=== PATIENT | female | born 1995 ===

== ENCOUNTER 2017-07-01 20:17 | Emergency (ER) | payer MEDICAID, OTHER ==
[2017-07-01 20:17] VITALS: BMI 21.5
[2017-07-01 21:43] VITALS: BP 113/78; O2SAT 100
[2017-07-01 21:56] LABS: RBC URINE 14 /hpf (0-3); URINE BACTERIA RARE (<OCC); URINE BILIRUBIN NEGATIVE (NEGATIVE); URINE BLOOD NEGATIVE (NEGATIVE); URINE COLOR Yellow (YELLOW); URINE GLUCOSE (UA) NORMAL (Normal); URINE KETONE NEGATIVE (NEGATIVE); URINE LEUKOCYTE ESTERASE 2+ Leu/uL (Negative); URINE PROTEIN NEGATIVE (NEGATIVE); URINE UROBILINOGEN NORMAL mg/dL (0.2-1.0); WBC URINE 56 /hpf (0-5)
--- NOTE | 2017-07-01 22:51 | C.PDOC ---
History Of Present Illness 21 year old female presents to the ED with complaints of urinary frequency and dysuria for three days. Patient denies back pain, fever, nausea, vomiting, or vaginal discharge. Time Seen by Provider: 07/01/17 22:39 Chief Complaint (Nursing): Female Genitourinary History Per: Patient History/Exam Limitations: no limitations Onset/Duration Of Symptoms: Days (3 days ) Current Symptoms Are (Timing): Still Present Associated Symptoms: Urinary Symptoms (frequency and dysuria ). denies: Fever, Chills, Nausea, Vomiting, Diarrhea Alleviating Factors: None Recent travel outside of the [place]: No Additional History Per: Family Abnormal Vaginal Bleeding: No Past Medical History Reviewed: Historical Data, Nursing Documentation, Vital Signs Vital Signs: Last Vital Signs Temp 98.6 F 07/01/17 22:40 Pulse 82 07/01/17 22:40 Resp 18 07/01/17 22:40 BP 113/78 07/01/17 21:38 Pulse Ox 100 07/01/17 23:51 Family History: States: Unknown Family Hx - Social History Hx Tobacco Use: No Hx Alcohol Use: Yes Hx Substance Use: No - Immunization History Hx Tetanus Toxoid Vaccination: No Hx Influenza Vaccination: No Hx Pneumococcal Vaccination: No Review Of Systems Constitutional: Negative for: Fever, Chills Respiratory: Negative for: Cough Gastrointestinal: Negative for: Nausea, Vomiting, Abdominal Pain, Diarrhea Genitourinary: Positive for: Dysuria, Frequency. Negative for: Hematuria, Vaginal Discharge, Vaginal Bleeding Musculoskeletal: Negative for: Back Pain Physical Exam - Physical Exam Appears: Non-toxic, No Acute Distress Skin: Warm, Dry Head: Atraumatic Eye(s): bilateral: Normal Inspection, EOMI Oral Mucosa: Moist Chest: Symmetrical, No Deformity Cardiovascular: Rhythm Regular, No Murmur Respiratory: Normal Breath Sounds, No Rales, No Rhonchi, No Wheezing Gastrointestinal/Abdominal: Soft, No Tenderness, No Distention, No Guarding, No Rebound Back: No CVA Tenderness Extremity: Normal ROM, No Tenderness Neurological/Psych: Oriented x3 Gait: Steady ED Course And Treatment O2 Sat by Pulse Oximetry: 100 (room air ) Progress Note: Labs were ordered and patient was given Pyrudium and Macrobid. Upon re-evaluation patient is resting comfortably. Disposition - Disposition Disposition: HOME/ ROUTINE Disposition Time: 22:48 Condition: STABLE Additional Instructions: Follow up with primary medical doctor in 1-3 days without fail for further evaluation. Take medications as prescribed. Return to the emergency department at any time if symptoms persist or worsen. Prescriptions: Nitrofurantoin Macrocrystals [Macrobid] 100 mg PO BID #14 cap Phenazopyridine HCl [Pyridium] 100 mg PO TID #6 tablet Instructions: Urinary Tract Infection in Women (ED) Forms: [employer] (Portuguese) - Clinical Impression Clinical Impression: UTI (urinary tract infection) - PA / SALES TRAINING REPRESENTATIVE / Resident Statement MD/DO has reviewed & agrees with the documentation as recorded. - Scribe Statement The provider has reviewed the documentation as recorded by the Scribe Linda Oconnor All medical record entries made by the Jef were at my direction and personally dictated by me. I have reviewed the chart and agree that the record accurately reflects my personal performance of the history, physical exam, medical decision making, and the department course for this patient. I have also personally directed, reviewed, and agree with the discharge instructions and disposition.
[2017-07-01 23:10] VITALS: PULSE 82; RESP 18; TEMP 98.6
== END 2017-07-01 22:45 | disposition home or self-care (01) ==
LOC: C.ER 20:17
DX: N39.0 Urinary tract infection, site not specified (principal)

== ENCOUNTER 2017-08-01 11:22 | Emergency (ER) | payer MEDICAID ==
[2017-08-01 11:23] VITALS: BMI 21.5
[2017-08-01 12:17] LABS: RBC URINE 4663 /hpf (0-3); URINE BACTERIA RARE (<OCC); URINE BILIRUBIN NEGATIVE (NEGATIVE); URINE BLOOD 3+ (NEGATIVE); URINE COLOR Amber (YELLOW); URINE GLUCOSE (UA) NORMAL (Normal); URINE KETONE TRACE mg/dL (NEGATIVE); URINE LEUKOCYTE ESTERASE 3+ Leu/uL (Negative); URINE PROTEIN 2+ mg/dL (NEGATIVE); WBC CLUMPS OCC /hpf; WBC URINE 386 /hpf (0-5)
--- NOTE | 2017-08-01 12:36 | C.PDOC ---
History Of Present Illness Kirti Brooks is a 21 y/o Time Seen by Provider: 08/01/17 11:50 Chief Complaint (Nursing): Abdominal Pain Past Medical History Vital Signs: Last Vital Signs Temp 98.2 F 08/01/17 11:36 Pulse 108 H 08/01/17 11:36 Resp 18 08/01/17 11:36 BP 132/89 08/01/17 11:36 Pulse Ox 97 08/01/17 11:36 - Medical History PMH: Denies: HIV, HTN, Seizures, Sexually Transmitted Disease Family History: States: Unknown Family Hx - Social History Hx Tobacco Use: No Hx Alcohol Use: No Hx Substance Use: No - Immunization History Hx Tetanus Toxoid Vaccination: No Hx Influenza Vaccination: No Hx Pneumococcal Vaccination: No ED Course And Treatment O2 Sat by Pulse Oximetry: 97 Disposition - Disposition
--- NOTE | 2017-08-01 12:40 | C.PDOC ---
History Of Present Illness Kirti Brooks is a 21 y/o female complaining of lower abdominal pressure, urinary discomfort, frequency and urgency for the last few weeks. Seen for the same symptoms at end of June and treated with macrobid and pyridium with some relief, but symptoms returned. Denies fever, chills, back pain, vomiting, vaginal discharge and bleeding. Also complains of left knee pain s/p twisting injury more than 1 month ago, with some swelling. PMD: None provided Time Seen by Provider: 08/01/17 11:50 Chief Complaint (Nursing): Abdominal Pain History Per: Patient History/Exam Limitations: no limitations Onset/Duration Of Symptoms: Days (x 3 weeks) Current Symptoms Are (Timing): Still Present Associated Symptoms: Urinary Symptoms Past Medical History Reviewed: Historical Data, Nursing Documentation, Vital Signs Vital Signs: Last Vital Signs Temp 97.7 F 08/01/17 13:06 Pulse 97 H 08/01/17 13:06 Resp 20 08/01/17 13:06 BP 108/72 08/01/17 13:06 Pulse Ox 98 08/01/17 13:06 - Medical History PMH: No Chronic Diseases Denies: HIV, HTN, Seizures, Sexually Transmitted Disease Surgical History: No Surg Hx Family History: States: Unknown Family Hx - Social History Hx Tobacco Use: No Hx Alcohol Use: No Hx Substance Use: No - Immunization History Hx Tetanus Toxoid Vaccination: No Hx Influenza Vaccination: No Hx Pneumococcal Vaccination: No Review Of Systems Constitutional: Negative for: Fever, Chills Gastrointestinal: Positive for: Abdominal Pain (lower abdominal pressure). Negative for: Nausea, Vomiting Genitourinary: Positive for: Dysuria, Frequency (and urgency). Negative for: Vaginal Discharge, Vaginal Bleeding Musculoskeletal: Negative for: Back Pain Physical Exam - Physical Exam Appears: Non-toxic, No Acute Distress Skin: Normal Color, Warm, Dry Head: Atraumatic, Normacephalic Eye(s): bilateral: Normal Inspection, PERRL, EOMI Throat: Normal Neck: Normal, Supple Chest: Symmetrical Cardiovascular: Rhythm Regular, No Murmur Respiratory: Normal Breath Sounds, No Accessory Muscle Use Gastrointestinal/Abdominal: Normal Exam, Bowel Sounds (good), Soft, No Tenderness Back: Normal Inspection, No CVA Tenderness Extremity: No Normal ROM, No Deformity, Swelling (left knee mildly swollen. Not red or hot), Other (Slightly decreased flexion of left knee secondary to pain) Pulses: Left Dorsalis Pedis: Normal, Right Dorsalis Pedis: Normal Neurological/Psych: Oriented x3, Normal Speech ED Course And Treatment O2 Sat by Pulse Oximetry: 97 (RA) Pulse Ox Interpretation: Normal Progress Note: Patient given Motrin. Ordered urine culture, urinalysis, urine test. Urine culture results from prior visit reviewed, cipro sensitive. Will D/C with cipro and pyridium. Follow up with preschool assistant or primary doctor. Disposition Counseled Patient/Family Regarding: Studies Performed, Diagnosis, Need For Followup, Rx Given - Disposition Referrals: Keon Adamson III, MD [Staff Provider] - Disposition: HOME/ ROUTINE Disposition Time: 12:37 Condition: STABLE Additional Instructions: Please take antibiotics as prescribed, ibuprofen for pain, pyridium for urinary discomfort- this medicine turns your tears and urine orange. Do not wear contact lenses when taking this medication. Wear Vinh bandage on knee for comfort and apply cold compresses to knee for 10 min at a time, several times a day. Follow up with your preschool assistant or primary medical doctor and with orthopedics. Return to ER for any worsening pain, vomiting, fever or other concerns. Prescriptions: Ciprofloxacin [Cipro] 500 mg PO BID #14 tab Ibuprofen [Motrin] 600 mg PO TID #30 tab Phenazopyridine [Pyridium] 200 mg PO TID #6 tab Instructions: Knee Sprain (ED), Urinary Tract Infection in Women (ED) Forms: General Discharge Instructions, [facility] (Fijian) - Clinical Impression Clinical Impression: UTI (urinary tract infection), Sprain of left knee
[2017-08-01 13:06] VITALS: BP 108/72; PULSE 97; RESP 20; TEMP 97.7
[2017-08-05 23:51] VITALS: O2SAT 97
== END 2017-08-01 13:07 | disposition home or self-care (01) ==
LOC: C.ER 11:22
DX: N39.0 Urinary tract infection, site not specified (principal); S83.92XA Sprain of unspecified site of left knee, initial encounter; X58.XXXA Exposure to other specified factors, initial encounter

== ENCOUNTER 2017-08-02 01:45 | Emergency (ER) | payer MEDICAID ==
[2017-08-02 01:46] VITALS: BMI 21.5
[2017-08-02 01:53] VITALS: RESP 16
[2017-08-02 03:40] LABS: RBC URINE 9 /hpf (0-3); URINE BILIRUBIN NEGATIVE (NEGATIVE); URINE BLOOD NEGATIVE (NEGATIVE); URINE GLUCOSE (UA) NORMAL (Normal); URINE KETONE NEGATIVE (NEGATIVE); URINE LEUKOCYTE ESTERASE 1+ Leu/uL (Negative); URINE PROTEIN 1+ mg/dL (NEGATIVE); WBC URINE 39 /hpf (0-5)
[2017-08-02 03:44] LABS: URINE COLOR ORANGE (YELLOW)
[2017-08-02 04:10] VITALS: BP 104/69; PULSE 74; TEMP 97.8; O2SAT 99
--- NOTE | 2017-08-02 04:21 | C.PDOC ---
History Of Present Illness 21 year old female who was seen earlier today for a UTI returns with abdominal pain and vomiting after taking 2 doses of the cipro she was prescribed. Patient report she did not eat anything before taking the cipro. Denies fever or chills. Time Seen by Provider: 08/02/17 02:14 Chief Complaint (Nursing): Abdominal Pain History Per: Patient History/Exam Limitations: no limitations Onset/Duration Of Symptoms: Hrs Current Symptoms Are (Timing): Still Present Location Of Pain/Discomfort: Diffuse Radiation Of Pain To:: None Quality Of Discomfort: Unable To Describe Associated Symptoms: Vomiting. denies: Fever, Chills Exacerbating Factors: None Alleviating Factors: None Recent travel outside of the [place]: No Abnormal Vaginal Bleeding: No Past Medical History Reviewed: Historical Data, Nursing Documentation, Vital Signs Vital Signs: Last Vital Signs Temp 97.8 F 08/02/17 04:09 Pulse 74 08/02/17 04:09 Resp 16 08/02/17 04:09 BP 104/69 08/02/17 04:09 Pulse Ox 99 08/02/17 04:28 - Medical History PMH: No Chronic Diseases Surgical History: No Surg Hx Family History: States: Unknown Family Hx - Social History Hx Tobacco Use: No Hx Alcohol Use: No Hx Substance Use: No - Immunization History Hx Tetanus Toxoid Vaccination: No Hx Influenza Vaccination: No Hx Pneumococcal Vaccination: No Review Of Systems Constitutional: Negative for: Fever, Chills Gastrointestinal: Positive for: Nausea, Vomiting, Abdominal Pain Physical Exam - Physical Exam Appears: Non-toxic, No Acute Distress Skin: Normal Color, Warm, Dry Head: Atraumatic, Normacephalic Eye(s): bilateral: Normal Inspection Oral Mucosa: Moist Neck: Normal ROM Chest: Symmetrical Cardiovascular: Rhythm Regular, No Friction Rub, No Murmur Respiratory: Normal Breath Sounds, No Rales, No Rhonchi, No Wheezing Gastrointestinal/Abdominal: Soft, No Tenderness, No Guarding, No Rebound, No Hernia Extremity: Normal ROM, No Swelling Neurological/Psych: Oriented x3, Normal Speech, Normal Cognition, Normal Motor Gait: Steady ED Course And Treatment O2 Sat by Pulse Oximetry: 99 (Room air) Pulse Ox Interpretation: Normal Medical Decision Making Medical Decision Making: Urinalysis ordered. Zofran administered. On reevaluation, patient reports improvement of pain and symptoms, will discharge home with instructions to continue antibiotics as prescribed and to follow up with PMD in 1-2 days. Disposition - Disposition Referrals: [facility] [Outside] Disposition: HOME/ ROUTINE Disposition Time: 04:24 Condition: GOOD Additional Instructions: Follow up with the medical doctor within 1-2 days without fail. Return if worsened. Prescriptions: Ondansetron ODT [Zofran ODT] 1 odt PO BID PRN #10 odt PRN Reason: Nausea/Vomiting Instructions: Ondansetron (By mouth), Urinary Tract Infection in Women (ED) Forms: [employer] (Uruguayan) - Clinical Impression Clinical Impression: UTI (urinary tract infection), Medication side effect, Nausea & vomiting - Scribe Statement The provider has reviewed the documentation as recorded by the Scribjairo Lantigua All medical record entries made by the Kaylynibjairo were at my direction and personally dictated by me. I have reviewed the chart and agree that the record accurately reflects my personal performance of the history, physical exam, medical decision making, and the department course for this patient. I have also personally directed, reviewed, and agree with the discharge instructions and disposition.
== END 2017-08-02 04:44 | disposition home or self-care (01) ==
LOC: C.ER 01:45
DX: N39.0 Urinary tract infection, site not specified (principal); R11.2 Nausea with vomiting, unspecified; R10.9 Unspecified abdominal pain; T36.8X5A Adverse effect of other systemic antibiotics, initial encounter

== ENCOUNTER 2018-01-12 12:32 | Emergency (ER) | payer MEDICAID ==
[2018-01-12 12:32] VITALS: BMI 21.5
[2018-01-12 13:15] VITALS: O2SAT 100
[2018-01-12 14:02] VITALS: BP 112/69; PULSE 101; RESP 18; TEMP 99.3
--- NOTE | 2018-01-12 15:00 | C.PDOC ---
History Of Present Illness <Kristina Lloyd - Last Filed: 01/12/18 16:39> <Diana Vicente DO - Last Filed: 01/13/18 09:44> Patient is a 22 year old female who denies past medical history who presents to the ED with complaint of two days of nausea, sore throat, headache and fever. Patient states she took ibuprofen yesterday with no relief of symptoms. Patient reports pain in bilateral temples. She reports decreased appetite today. Patient denies sick contacts. Patient denies dysuria, vomiting, diarrhea, body aches. LMP 1.5 weeks ago, normal, per patient. Patient reports improvement in symptoms after receiving Tylenol. (Diana Vicente DO) <Kristina Lloyd - Last Filed: 01/12/18 16:39> History Per: Patient Onset/Duration Of Symptoms: Days Current Symptoms Are (Timing): Better Location Of Pain: Throat Sick Contacts (Context): None Associated Symptoms: Fever, Sore Throat. denies: Neck Pain, Sinus Drainage, Myalgias Ear Symptoms: Bilateral: None, Ear Pain, Ear Fullness, Decreased Hearing, External Ear Redness, Ear Swelling, Ear Drainage <Diana Vicente DO - Last Filed: 01/13/18 09:44> Time Seen by Provider: 01/12/18 14:01 Chief Complaint (Nursing): ENT Problem Past Medical History - Medical History PMH: No Chronic Diseases Denies: HIV, HTN, Seizures, Sexually Transmitted Disease Family History: States: Unknown Family Hx - Social History Hx Tobacco Use: No Hx Alcohol Use: No Hx Substance Use: No - Immunization History Hx Tetanus Toxoid Vaccination: No Hx Influenza Vaccination: No Hx Pneumococcal Vaccination: No <Diana Vicente DO - Last Filed: 01/13/18 09:44> Vital Signs: Last Vital Signs Temp 99.3 F 01/12/18 14:01 Pulse 101 H 01/12/18 14:01 Resp 18 01/12/18 14:01 BP 112/69 01/12/18 14:01 Pulse Ox 100 01/12/18 15:48 Review Of Systems Constitutional: Positive for: Fever. Negative for: Weakness, Malaise Eyes: Negative for: Vision Change ENT: Positive for: Throat Pain. Negative for: Ear Pain, Ear Discharge Cardiovascular: Negative for: Chest Pain, Palpitations Respiratory: Negative for: Cough, Shortness of Breath Gastrointestinal: Positive for: Nausea. Negative for: Vomiting, Abdominal Pain , Diarrhea Genitourinary: Negative for: Dysuria, Frequency Musculoskeletal: Negative for: Neck Pain, Back Pain Neurological: Negative for: Weakness, Numbness, Dizziness <Diana Vicente DO - Last Filed: 01/13/18 09:44> Physical Exam - Physical Exam Appears: Non-toxic, No Acute Distress Skin: Normal Color, Warm, Dry Head: Atraumatic, Normacephalic Eye(s): bilateral: EOMI Ear(s): Bilateral: Normal Nose: Normal Oral Mucosa: Moist Tongue: Normal Appearing Lips: Normal Appearing Teeth: Normal Dentition Gingiva: Normal Appearing Throat: Erythema (mild erythema of tonsillar pillars), No Exudate Neck: Normal ROM, No Midline Cervical Tenderness, Supple Lymphatic: Adenopathy (mild submandibular, submental) Chest: Symmetrical Cardiovascular: Rhythm Regular Respiratory: Normal Breath Sounds Gastrointestinal/Abdominal: Soft, No Tenderness Extremity: No Tenderness Extremity: Bilateral: Normal Color And Temperature Neurological/Psych: Oriented x3, Normal Speech, Normal Cognition <Diana Vicente DO - Last Filed: 01/13/18 09:44> ED Course And Treatment O2 Sat by Pulse Oximetry: 100 <Diana Vicente DO - Last Filed: 01/13/18 09:44> Medical Decision Making <Kristina Lloyd - Last Filed: 01/12/18 16:39> <Diana Vicente DO - Last Filed: 01/13/18 09:44> Medical Decision Making: Rapid strep collected. Patient reports improvement in symptoms after receiving Tylenol. Rapid strep negative. (Diana Vicente DO) Disposition Counseled Patient/Family Regarding: Studies Performed, Diagnosis, Need For Followup - Disposition Disposition Time: 16:39 <Kristina Lloyd - Last Filed: 01/12/18 16:39> <Diana Vicente DO - Last Filed: 01/13/18 09:44> - Disposition Disposition: HOME/ ROUTINE Condition: IMPROVED Additional Instructions: Take Tylenol for pain or fever if needed. Gargle with warm salty water several times a day. Follow up with your doctor or in clinic in a few days. Return to ER for any worse symptoms. Prescriptions: Acetaminophen [Tylenol 325mg tab] 650 mg PO Q6 #30 tab Instructions: Viral Upper Respiratory Infection, Adult (DC) Forms: [employer] (Luxembourgish) - Clinical Impression Clinical Impression: Upper respiratory infection - PA / POLISH MAKER / Resident Statement / has reviewed & agrees with the documentation as recorded. / has examined the patient and agrees with the treatment plan. <Diana Vicente DO - Last Filed: 01/13/18 09:44>
== END 2018-01-12 16:45 | disposition home or self-care (01) ==
LOC: C.ER 12:32
DX: J06.9 Acute upper respiratory infection, unspecified (principal)

== ENCOUNTER 2018-10-12 16:19 | Emergency (ER) | payer MEDICAID ==
[2018-10-12 16:53] VITALS: BMI 22.8
[2018-10-12 17:00] VITALS: BP 121/77; PULSE 120; RESP 18; TEMP 98.4; O2SAT 98
[2018-10-12 17:56] LABS: HCG,QUALITATIVE URINE NEGATIVE (NEGATIVE)
[2018-10-12] MEDS ORDERED: Sodium Chloride 0.9% 1,000 ML IV ONE (18:01)
[2018-10-12 18:06] LABS: BASO % 0.3 % (0.0-2.0); EOS # 0.1 K/uL (0.0-0.7); HEMOGLOBIN 13.7 g/dL (11.0-16.0); LYMPH # 0.5 K/uL (1.0-4.3); LYMPH % 4.9 % (20.0-40.0); MEAN CORPUSCULAR HEMOGLOBIN 28.3 pg (27.0-31.0); MEAN PLATELET VOLUME 8.9 fL (7.2-11.7); MONO # 0.5 K/uL (0.0-0.8); MONO % 5.5 % (0.0-10.0); NEUT # 8.4 K/uL (1.8-7.0); NEUT % 88.3 % (50.0-75.0); NRBC % 0.1 % (0.0-2.0); PLATELET COUNT 250 K/uL (130-400); RBC 4.84 Mil/uL (3.80-5.20); RED CELL DISTRIBUTION WIDTH 14.6 % (11.5-14.5); WHITE BLOOD COUNT 9.5 K/uL (4.8-10.8)
--- NOTE | 2018-10-12 18:08 | C.PDOC ---
History Of Present Illness 22 years old female presents to ED for complaints of epigastric abdominal pain associated with vomiting that began this morning. Denies fever, chills, diarrhea, or any other complaints. Time Seen by Provider: 10/12/18 17:59 Chief Complaint (Nursing): GI Problem History Per: Patient History/Exam Limitations: no limitations Onset/Duration Of Symptoms: Hrs Current Symptoms Are (Timing): Still Present Location Of Pain/Discomfort: Epigastric Radiation Of Pain To:: None Associated Symptoms: Nausea, Vomiting. denies: Fever, Chills, Diarrhea, Urinary Symptoms Exacerbating Factors: None Alleviating Factors: None Last Bowel Movement: Today Recent travel outside of the [place] States: No Abnormal Vaginal Bleeding: No Past Medical History Reviewed: Historical Data, Nursing Documentation, Vital Signs Vital Signs: Last Vital Signs Temp 98.4 F 10/12/18 16:53 Pulse 120 H 10/12/18 16:53 Resp 18 10/12/18 16:53 BP 121/77 10/12/18 16:53 Pulse Ox 98 10/12/18 16:53 - Medical History PMH: No Chronic Diseases Denies: HIV, HTN, Seizures, Sexually Transmitted Disease Family History: States: Unknown Family Hx - Social History Hx Tobacco Use: No Hx Alcohol Use: No Hx Substance Use: No - Immunization History Hx Tetanus Toxoid Vaccination: No Hx Influenza Vaccination: No Hx Pneumococcal Vaccination: No Review Of Systems Constitutional: Negative for: Fever, Chills Gastrointestinal: Positive for: Nausea, Vomiting, Abdominal Pain (Epigastric ). Negative for: Diarrhea Skin: Negative for: Rash Neurological: Negative for: Weakness, Numbness Physical Exam - Physical Exam Appears: Non-toxic, No Acute Distress Skin: Normal Color, Warm, Dry, No Rash Head: Atraumatic, Normacephalic Eye(s): bilateral: Normal Inspection, PERRL, EOMI Oral Mucosa: Moist Neck: Normal ROM, Supple Chest: Symmetrical, No Tenderness Cardiovascular: Rhythm Regular, No Murmur Respiratory: Normal Breath Sounds, No Rales, No Rhonchi, No Wheezing Gastrointestinal/Abdominal: Bowel Sounds (Active ), Soft, Tenderness (Epigastric ), No Guarding, No Rebound Extremity: Normal ROM Extremity: Bilateral: Atraumatic, Normal Color And Temperature, Normal ROM Pulses: Left Radial: Normal, Right Radial: Normal Neurological/Psych: Oriented x3, Normal Speech Gait: Steady ED Course And Treatment - Laboratory Results Result Diagrams: 10/12/18 18:01 10/12/18 18:01 Lab Results: Urine HCG, Qual Negative (NEGATIVE) 10/12/18 17:50 Urine HCG, Qual Negative (NEGATIVE) 10/12/18 17:50 O2 Sat by Pulse Oximetry: 98 (RA) Pulse Ox Interpretation: Normal Medical Decision Making Medical Decision Making: suspect gastrits pud. r/o pancreatits. no ruq ttp Plan: * IV Fluids * Protonix * Zofran * Blood work * Urinalysis pain all resolve din er. pt in nad. asking for dc. labs neg. adviseoutpt fu and return precuaitons. Disposition - Disposition Referrals: Oscar Davis MD [Staff Provider] - Disposition: HOME/ ROUTINE Disposition Time: 20:13 Condition: STABLE Additional Instructions: return to er with worsening symptoms or concerns. Prescriptions: Famotidine [Pepcid] 20 mg PO DAILY #20 tab Instructions: Acute Abdomen (Belly Pain) Forms: [employer] (Anguillan) - Clinical Impression Clinical Impression: Abdominal pain - Scribe Statement The provider has reviewed the documentation as recorded by the Scribe Nikko Acuña All medical record entries made by the Scribe were at my direction and personally dictated by me. I have reviewed the chart and agree that the record accurately reflects my personal performance of the history, physical exam, medical decision making, and the department course for this patient. I have also personally directed, reviewed, and agree with the discharge instructions and disposition.
[2018-10-12 18:10] LABS: SQUAMOUS EPITHIAL 4 /hpf (0-5); URINE BILIRUBIN NEGATIVE (NEGATIVE); URINE BLOOD NEGATIVE (NEGATIVE); URINE CLARITY Hazy (Clear); URINE COLOR Yellow (YELLOW); URINE GLUCOSE (UA) NORMAL (Normal); URINE LEUKOCYTE ESTERASE NEG Leu/uL (Negative); URINE PROTEIN NEGATIVE (NEGATIVE); URINE UROBILINOGEN NORMAL mg/dL (0.2-1.0)
[2018-10-12] MEDS ORDERED: Sodium Chloride 0.9% 1,000 ML ONE (18:10)
[2018-10-12 18:16] LABS: ALB/GLOB RATIO 1.5 (1.0-2.1)
[2018-10-12 18:20] LABS: ALBUMIN 5.2 g/dL (3.5-5.0); ALT/SGPT 22 U/L (9-52); AST/SGOT 22 U/L (14-36); BILIRUBIN,DIRECT 0.4 mg/dL (0.0-0.4); BLOOD UREA NITROGEN 13 mg/dL (7-17); CALCIUM 9.5 mg/dl (8.6-10.4); GFR NON-AFRICAN AMERICAN > 60; LIPASE 95 U/L (23-300)
[2018-10-12 18:30] LABS: MEAN CELL VOLUME 85.8 fL (81.0-99.0)
[2018-10-12 18:49] LABS: BANDS 1 % (0-2); EOSINOPHIL 1 % (0-4); LYMPHOCYTE 6 % (20-40); MONOCYTE 7 % (0-10); NEUTROPHIL 85 % (50-75); PLATELET ESTIMATE NORMAL (NORMAL); TOTAL CELLS COUNTED 100
== END 2018-10-12 19:00 | disposition home or self-care (01) ==
LOC: C.ER 16:19
DX: R10.13 Epigastric pain (principal)
CPT/HCPCS: 80053; 81001; 82248; 83690; 84703; 85025; 96374; 96375; 99283; C9113; J2405; J7030

== ENCOUNTER 2018-10-16 14:24 | Outpatient (CLI) | payer MEDICAID | END 2018-10-16 14:25 | disposition home or self-care (01) | LOC: C.USIC 14:24 | DX: Z31.69 Encounter for other general counseling and advice on procreation (principal) ==

== ENCOUNTER 2018-11-12 19:23 | Emergency (ER) | payer MEDICAID ==
[2018-11-12 19:24] VITALS: BMI 22.8
[2018-11-12] MEDS ORDERED: Albuterol-Ipratrop 3 mg / 0.5 (3 ml) UD INH STA (20:38)
[2018-11-12] MEDS ORDERED: Albuterol-Ipratrop 3 mg / 0.5 (3 ml) UD ONE (20:49)
--- NOTE | 2018-11-12 20:56 | C.PDOC ---
History Of Present Illness 22 y/o female presents to the ER complaining of fever, chills, cough, pleuritic chest pain, and body aches since yesterday. Patient states that she did not receive the flu vaccination this year. Patient denies having nausea, vomiting, and diarrhea. Time Seen by Provider: 11/12/18 20:21 Chief Complaint (Nursing): Cough, Cold, Congestion History Per: Patient History/Exam Limitations: no limitations Onset/Duration Of Symptoms: Days Current Symptoms Are (Timing): Still Present Location Of Pain: Diffuse Myalgias Associated Symptoms: Fever, Chills, Cough, Myalgias Ear Symptoms: Bilateral: None Severity: Moderate Past Medical History Reviewed: Historical Data, Nursing Documentation, Vital Signs Vital Signs: Last Vital Signs Temp 100.8 F H 11/12/18 19:42 Pulse 122 H 11/12/18 19:42 Resp 22 11/12/18 19:42 BP 117/88 11/12/18 19:42 Pulse Ox 97 11/12/18 19:42 - Medical History PMH: No Chronic Diseases Denies: HIV, HTN, Seizures, Sexually Transmitted Disease Surgical History: No Surg Hx Family History: States: No Known Family Hx - Social History Hx Tobacco Use: No Hx Alcohol Use: No Hx Substance Use: No - Immunization History Hx Tetanus Toxoid Vaccination: No Hx Influenza Vaccination: No Hx Pneumococcal Vaccination: No Review Of Systems Constitutional: Positive for: Fever, Chills, Malaise Cardiovascular: Positive for: Chest Pain (pleuritic) Respiratory: Positive for: Cough, Pleuritic Pain. Negative for: Shortness of Breath Gastrointestinal: Negative for: Nausea, Vomiting, Abdominal Pain, Diarrhea Skin: Negative for: Rash Neurological: Negative for: Weakness, Numbness Physical Exam - Physical Exam Appears: Non-toxic, Other (uncomfortable) Skin: Warm, Dry Head: Atraumatic, Normacephalic Eye(s): bilateral: Normal Inspection Ear(s): Left: Normal, Right: TM Obscured By Wax Nose: Normal Oral Mucosa: Moist Throat: No Erythema, No Exudate Neck: Supple Chest: Symmetrical, No Tenderness Cardiovascular: Rhythm Regular (with tachycardia) Respiratory: Decreased Breath Sounds (scattered coarse breath sounds), No Rales, No Rhonchi, No Wheezing Gastrointestinal/Abdominal: Bowel Sounds, Soft, No Tenderness, No Guarding, No Rebound Neurological/Psych: Oriented x3, Normal Speech, Normal Cognition ED Course And Treatment O2 Sat by Pulse Oximetry: 97 (RA) Pulse Ox Interpretation: Normal Medical Decision Making Medical Decision Making: Plan: --CXR --Duoneb --Tamiflu PO --Tylenol PO 2130 pt still coughing after neb, wet read cxr neg. will tx for flu, give tessalon. Disposition Counseled Patient/Family Regarding: Studies Performed, Diagnosis, Need For Followup, Rx Given - Disposition Referrals: Tristan Rocha DO [Staff Provider] - Disposition: HOME/ ROUTINE Disposition Time: 21:46 Condition: GOOD Additional Instructions: Drink increased fluids. Take Tamiflu as prescribed. Use inhaler 2 puffs every 6 hours. Tessalon perles for cough. Tylenol or MOtrin for fever or pain. FOllow up with Dr Rocha in 1-2 days. Return to ER for worse symptoms. Prescriptions: Albuterol HFA [Ventolin HFA 90 mcg/actuation (8 g)] 2 puff IH Q6 #1 inhaler Benzonatate [Tessalon Perles] 100 mg PO TID #12 sgl Oseltamivir Phosphate [Tamiflu] 75 mg PO BID #10 capsule Instructions: Influenza (ED) Forms: General Discharge Instructions, [facility] (Stateless), Work Excuse - Clinical Impression Clinical Impression: Influenza-like illness - PA / COMMUTER TRAIN OPERATOR / Resident Statement / has reviewed & agrees with the documentation as recorded. - Scribe Statement The provider has reviewed the documentation as recorded by the Jef Tam Provider Attestation All medical record entries made by the Scribe were at my direction and personally dictated by me. I have reviewed the chart and agree that the record accurately reflects my personal performance of the history, physical exam, medical decision making, and the department course for this patient. I have also personally directed, reviewed, and agree with the discharge instructions and disposition.
[2018-11-12 21:42] VITALS: BP 108/70; PULSE 108; RESP 20; TEMP 98.6
[2018-11-12 21:45] VITALS: O2SAT 97
--- NOTE | 2018-11-13 08:20 | RAD ---
HISTORY: cough fever COMPARISON: None available TECHNIQUE: Chest PA and lateral FINDINGS: LUNGS: No focal consolidation. Please note that chest x-ray has limited sensitivity for the detection of pulmonary masses. PLEURA: No significant pleural effusion identified. No definite pneumothorax . CARDIOVASCULAR: The cardiomediastinal silhouette appears within normal limits of size. No atherosclerotic calcification present. OSSEOUS STRUCTURES: No acute osseous abnormality identified. VISUALIZED UPPER ABDOMEN: Unremarkable. OTHER FINDINGS: Bilateral nipple rings. IMPRESSION: No focal consolidation.
== END 2018-11-12 22:01 | disposition home or self-care (01) ==
LOC: C.ER 19:23
DX: J11.1 Influenza due to unidentified influenza virus with other respiratory manifestations (principal)

== ENCOUNTER 2018-12-22 19:42 | Emergency (ER) | payer MEDICAID ==
[2018-12-22 19:42] VITALS: BMI 22.8
[2018-12-22 19:58] VITALS: RESP 18; O2SAT 100
[2018-12-22] MEDS ORDERED: Naproxen 550 mg Tab PO STA (21:35)
[2018-12-22] MEDS ORDERED: Naproxen 550 mg Tab PO ONE (21:48)
--- NOTE | 2018-12-22 22:03 | C.PDOC ---
History Of Present Illness 23 year old female with no significant PMHx presents to the ED c/o sharp right sided chest pain that is below the breast. Patient also reports some tingling/shooting pain in her left arm, pain suddenly resolved on its own. Patient reports pain is currently mild at this point only located in her chest. Patient denies fever, chills, headache, visual changes, SOB, palpitations, rash, diaphoresis, injury, fall, trauma. Time Seen by Provider: 12/22/18 21:43 Chief Complaint (Nursing): Chest Pain History Per: Patient History/Exam Limitations: no limitations Onset/Duration Of Symptoms: Days Current Symptoms Are (Timing): Still Present Severity: Mild Quality: Sharp Associated Symptoms: denies: Nausea, Diaphoresis, Syncope Recent travel outside of the [place]: No Additional History Per: Patient Past Medical History Reviewed: Historical Data, Nursing Documentation, Vital Signs Vital Signs: Last Vital Signs Temp 98.3 F 12/22/18 19:54 Pulse 74 12/22/18 19:54 Resp 18 12/22/18 19:54 BP 125/83 12/22/18 19:54 Pulse Ox 100 12/22/18 19:54 - Medical History PMH: No Chronic Diseases Denies: HIV, HTN, Seizures, Sexually Transmitted Disease Surgical History: No Surg Hx Family History: States: Unknown Family Hx - Social History Hx Tobacco Use: No Hx Alcohol Use: Yes Hx Substance Use: No - Immunization History Hx Tetanus Toxoid Vaccination: No Hx Influenza Vaccination: No Hx Pneumococcal Vaccination: No Review Of Systems Constitutional: Negative for: Fever, Chills Eyes: Negative for: Vision Change Cardiovascular: Positive for: Chest Pain. Negative for: Palpitations Respiratory: Negative for: Cough, Shortness of Breath Gastrointestinal: Negative for: Nausea, Vomiting, Abdominal Pain Skin: Negative for: Rash Neurological: Negative for: Weakness, Numbness, Headache, Dizziness Physical Exam - Physical Exam Appears: Non-toxic, No Acute Distress Skin: Normal Color, Warm, Dry, No Rash Head: Atraumatic, Normacephalic Eye(s): bilateral: Normal Inspection Neck: Normal ROM, Supple Chest: Symmetrical, No Tenderness Cardiovascular: Rhythm Regular Respiratory: Normal Breath Sounds, No Rales, No Rhonchi, No Wheezing Gastrointestinal/Abdominal: Soft, No Tenderness, No Guarding, No Rebound Extremity: Bilateral: Atraumatic, Normal Color And Temperature, Normal ROM Neurological/Psych: Oriented x3, Normal Speech, Normal Cognition Gait: Steady ED Course And Treatment - Laboratory Results Result Diagrams: 12/22/18 22:03 12/22/18 22:03 ECG: Interpreted By Me, Viewed By Me ECG Rhythm: Sinus Rhythm Rate From EC (BPM) O2 Sat by Pulse Oximetry: 100 (ON RA) Pulse Ox Interpretation: Normal Medical Decision Making Medical Decision Making: Impression: Chest pain, unlikely cardiac origin. Plan: * Labs * EKG * CXR * Naproxen 550 mg PO Anticipate patient;s to be discharged home as chest pain is unlikely of cardiac origin. Discussed labs and imaging results with patient, results were unremarkable. Return precautions and warning sings for chest pain were discussed. Patient was advised to follow up with PMD. Disposition - Disposition Disposition: HOME/ ROUTINE Disposition Time: 23:20 Condition: IMPROVED Additional Instructions: Take Tylenol or Motrin as needed for pain. Follow up with primary medical doctor as needed. Instructions: Chest Pain That Is Not Caused by the Heart (DC) Forms: [employer] (Kazakh), Work Excuse Print Language: MONGOLIAN - Clinical Impression Clinical Impression: Chest pain not due to acute coronary syndrome - Scribe Statement The provider has reviewed the documentation as recorded by the Scribe Faustino Tony All medical record entries made by the Scribe were at my direction and personally dictated by me. I have reviewed the chart and agree that the record accurately reflects my personal performance of the history, physical exam, medical decision making, and the department course for this patient. I have also personally directed, reviewed, and agree with the discharge instructions and disposition.
[2018-12-22 22:06] LABS: BASO # 0.1 K/uL (0.0-0.2); BASO % 0.8 % (0.0-2.0); EOS # 0.2 K/uL (0.0-0.7); EOS % 2.1 % (0.0-4.0); HEMOGLOBIN 12.2 g/dL (11.0-16.0); LYMPH # 2.6 K/uL (1.0-4.3); LYMPH % 32.3 % (20.0-40.0); MEAN CELL VOLUME 88.2 fL (81.0-99.0); MEAN CORPUSCULAR HEMOGLOBIN 28.4 pg (27.0-31.0); MEAN CORPUSCULAR HGB CONC 32.2 g/dL (33.0-37.0); MEAN PLATELET VOLUME 8.4 fL (7.2-11.7); MONO # 0.6 K/uL (0.0-0.8); MONO % 7.4 % (0.0-10.0); NEUT # 4.6 K/uL (1.8-7.0); NEUT % 57.4 % (50.0-75.0); RBC 4.3 Mil/uL (3.80-5.20); RED CELL DISTRIBUTION WIDTH 14.3 % (11.5-14.5)
[2018-12-22 22:18] LABS: BLOOD UREA NITROGEN 9 mg/dL (7-17); CALCIUM 9.2 mg/dl (8.6-10.4); GFR NON-AFRICAN AMERICAN > 60
[2018-12-22 23:36] VITALS: BP 106/70; PULSE 60; TEMP 97.9
--- NOTE | 2018-12-23 08:28 | RAD ---
Date of service: 12/22/2018 HISTORY: cough COMPARISON: 11/12/2018 TECHNIQUE: Chest PA and lateral FINDINGS: LUNGS: No active pulmonary disease. PLEURA: No significant pleural effusion identified. No pneumothorax apparent. CARDIOVASCULAR: No aortic atherosclerotic calcification present. Normal cardiac size. No pulmonary vascular congestion. OSSEOUS STRUCTURES: No significant abnormalities. VISUALIZED UPPER ABDOMEN: Normal. OTHER FINDINGS: Bilateral nipple rings in place as before. IMPRESSION: No active disease. No interval pathology noted.
--- NOTE | 2018-12-23 18:53 | CARD ---
APPROVED REPORT Date of service: 12/22/2018 EKG Measurement Heart [id number] <Conclusion> Normal sinus rhythm Possible Left atrial enlargement Borderline ECG
== END 2018-12-22 23:38 | disposition home or self-care (01) ==
LOC: C.ER 19:42
DX: R07.9 Chest pain, unspecified (principal)